=== PATIENT | female | born 1990 | race Caucasian/White ===

== ENCOUNTER 2022-12-15 00:42 | Emergency (ER) | payer OTHER ==
[~2022-12-15] VITALS: Ht 154.9 cm; Wt 86.2 kg
[2022-12-15 01:42] VITALS: BP 113/79
== END 2022-12-15 02:19 | disposition still patient (30) ==
LOC: ER 00:42
DX: O99.891 Other specified diseases and conditions complicating pregnancy (principal); M25.532 Pain in left wrist; R10.10 Upper abdominal pain, unspecified; W18.30XA Fall on same level, unspecified, initial encounter
CPT/HCPCS: 29125; 99284-25; L3917